=== PATIENT | female | born 1985 | race Caucasian/White ===

== ENCOUNTER → 2018-07-02 | Outpatient (CLI) | payer OTHER ==
--- NOTE | 2018-07-02 09:34 | US ---
EXAMINATION TYPE: US pelvic complete DATE OF EXAM: 07/02/2018 COMPARISON: NONE CLINICAL HISTORY: R10.30 Lower Abd Pain. Pelvic pain, right worse than left. Diagnosed with PCOS per patient. Irregular cycles TECHNIQUE: . Transabdominal sonographic images of the pelvis were acquired. Date of LMP: about 1 week ago EXAM MEASUREMENTS: Uterus: 7.0 x 3.2 x 4.4 cm Endometrial Stripe: 0.4 cm Right Ovary: 2.6 x 1.6 x 1.8 cm Left Ovary: 2.4 x 1.5 x 2.1 cm 1. Uterus: Anteverted wnl 2. Endometrium: wnl 3. Right Ovary: wnl 4. Left Ovary: wnl 5. Bilateral Adnexa: wnl 6. Posterior cul-de-sac: wnl IMPRESSION: Transabdominal pelvic ultrasound shows no suspicious abnormality. Ovaries noted normal in size without suspicious cystic change.
== END | disposition home or self-care (01) ==
LOC: RADUSWWP 08:55
PROVIDERS: ATTEND Internal Medicine
DX: R10.30 Lower abdominal pain, unspecified (principal)
CPT/HCPCS: 76856

== ENCOUNTER 2018-12-31 09:55 | Inpatient (IN) | payer OTHER ==
[2018-12-31] MEDS ORDERED: IPRATROPIUM-ALBUTEROL 3 ML NEB INHALATION STA (10:05)
[2018-12-31] MEDS ORDERED: PROMETHAZINE HCL 6.25 MG/5 ML CUP PO STA (10:06)
[2018-12-31] MEDS ORDERED: SODIUM CHLORIDE 0.9% 1,000 ML IV ONE (10:06)
[2018-12-31] MEDS ORDERED: methylPREDNISolone SOD SUCCI 125 MG/2 ML VIAL IV STA (10:06)
--- NOTE | 2018-12-31 10:09 | ED ---
URI HPI <Gilberto Barnett - Last Filed: 12/31/18 12:14> - General Source: RN notes reviewed, old records reviewed <Loraine Nguyen - Last Filed: 12/31/18 12:20> - General Stated Complaint: Cough Time Seen by Provider: 12/31/18 09:57 - History of Present Illness Initial Comments: 33-year-old female presents emergency department today for evaluation for cough and congestion. Patient states that she has had this cough for the past week. Patient states that her cough is persistent. She states it was taking a deep breath she has worsening response and coughing. She has had some episodes of vomiting. She has not diagnosis history of asthma. Patient is a [facility] for alcohol abuse, and was brought here via EMS. (Loraine Nguyen) - Related Data Home Medications Medication Instructions Recorded Confirmed Venlafaxine HCl [Effexor XR] 150 mg PO QAM 12/31/18 12/31/18 Allergies Allergy/AdvReac Type Severity Reaction Status Date / Time No Known Allergies Allergy Unverified 12/31/18 10:11 Review of Systems ROS Other: All systems not noted in ROS Statement are negative. <Gilberto Barnett - Last Filed: 12/31/18 12:14> ROS Other: All systems not noted in ROS Statement are negative. <Loraine Nguyen - Last Filed: 12/31/18 12:20> ROS Statement: Those systems with pertinent positive or pertinent negative responses have been documented in the HPI. General Exam <Gilberto Barnett - Last Filed: 12/31/18 12:14> General appearance: alert, in no apparent distress Head exam: Present: atraumatic, normocephalic, normal inspection Eye exam: Present: normal appearance, PERRL, EOMI. Absent: scleral icterus, conjunctival injection, periorbital swelling ENT exam: Present: normal exam, mucous membranes moist Neck exam: Present: normal inspection. Absent: tenderness, meningismus, lymphadenopathy Respiratory exam: Present: wheezes, decreased breath sounds. Absent: normal lung sounds bilaterally, respiratory distress, rales, rhonchi, stridor Cardiovascular Exam: Present: regular rate, normal rhythm, normal heart sounds. Absent: systolic murmur, diastolic murmur, rubs, gallop, clicks GI/Abdominal exam: Present: soft, normal bowel sounds. Absent: distended, tenderness, guarding, rebound, rigid Extremities exam: Present: normal inspection, full ROM, normal capillary refill. Absent: tenderness, pedal edema, joint swelling, calf tenderness Back exam: Present: normal inspection Neurological exam: Present: alert, oriented X3, CN II-XII intact Psychiatric exam: Present: normal affect, normal mood Skin exam: Present: warm, dry, intact, normal color. Absent: rash <Loraine Nguyen - Last Filed: 12/31/18 12:20> - General Exam Comments Initial Comments: 33-year-old female. Alert and oriented 3. Patient appears in no significant distress at this time. Pulse ox is 91% on room air. (Loraine Nguyen) Course <Gilberto Barnett - Last Filed: 12/31/18 12:14> <Loraine Nguyen - Last Filed: 12/31/18 12:20> Vital Signs 12/31/18 12/31/18 12/31/18 10:09 10:11 10:20 Temperature 98.6 F Pulse Rate 86 79 88 Respiratory 20 Rate Blood Pressure O2 Sat by Pulse 93 L Oximetry 12/31/18 12/31/18 10:29 11:14 Temperature Pulse Rate 81 88 Respiratory 18 18 Rate Blood Pressure 112/83 111/70 O2 Sat by Pulse 100 96 Oximetry - Reevaluation(s) Reevaluation #1: 12/31/18 12:14 PA supervision: I proceeded [id number] evaluation the patient. She presents with complaints of cough and shortness of breath going on for about one week. She is scheduled to get out of rehab for alcohol abuse tomorrow. X-rays demonstrate multilobed pneumonia evidence of right lower right middle lobe infiltrate possibly right upper lobe on clinical exam she has wheezes and rhonchi and the above lobes as well as left lower lobe. Also she is influenza type A positive. She'll be admitted for inpatient treatment I do agree with the assessment and plan. I did discuss the case with Dr. Cao (Gilberto Barnett) Medical Decision Making - Lab Data Result diagrams: 12/31/18 10:30 12/31/18 10:30 <Gilberto Barnett - Last Filed: 12/31/18 12:14> - Lab Data Result diagrams: 12/31/18 10:30 12/31/18 10:30 - Radiology Data Radiology results: report reviewed <Loraine Nguyen - Last Filed: 12/31/18 12:20> - Medical Decision Making 33 year old female presents to ED with CC of cough, shortness of breath. Patient has had symptoms for one week. Patient is a former RN. Patient has a history of alcohol abuse and is currently staying at [facility]. She was sent here via EMS. Checks emergency department today with a low pulse ox is 91% on room air. She's had diffuse wheezing and rhonchi noted bilaterally. She is given a double DuoNeb treatment. Patient is positive for influenza A. Chest x-ray is completed shows a multilobar pneumonia. I discussed case with Dr. Pacheco Recommended admission. With Patient having history of alcohol abuse and influenza she has multiple risk factors for resistant pathogens. It is started Patient on Rocephin and vancomycin this time. Further antibiotics per infectious disease. (Loraine Nguyen) - Lab Data Lab Results 12/31/18 12/31/18 12/31/18 Range/Units 10:10 10:30 10:30 WBC 2.9 L (3.8-10.6) k/uL RBC 3.73 L (3.80-5.40) m/uL Hgb 12.5 (11.4-16.0) gm/dL Hct 37.5 (34.0-46.0) % MCV 100.7 H (80.0-100.0) fL MCH 33.6 (25.0-35.0) pg MCHC 33.3 (31.0-37.0) g/dL RDW 14.3 (11.5-15.5) % Plt Count 222 (150-450) k/uL PT (9.0-12.0) sec INR (<1.2) APTT (22.0-30.0) sec Sodium 139 (137-145) mmol/L Potassium 4.7 (3.5-5.1) mmol/L Chloride 102 (98-107) mmol/L Carbon Dioxide 29 (22-30) mmol/L Anion Gap 8 mmol/L BUN 16 (7-17) mg/dL Creatinine 0.66 (0.52-1.04) mg/dL Est GFR (CKD-EPI)AfAm >90 (>60 ml/min/1.73 sqM) Est GFR (CKD-EPI)NonAf >90 (>60 ml/min/1.73 sqM) Glucose 92 (74-99) mg/dL Plasma Lactic Acid Luis M (0.7-2.0) mmol/L Calcium 8.7 (8.4-10.2) mg/dL Total Bilirubin 0.4 (0.2-1.3) mg/dL AST 126 H (14-36) U/L ALT 83 H (9-52) U/L Alkaline Phosphatase 75 (38-126) U/L Total Protein 6.7 (6.3-8.2) g/dL Albumin 3.8 (3.5-5.0) g/dL Influenza Type A RNA Detected H (Not Detectd) Influenza Type B (PCR) Not Detected (Not Detectd) 12/31/18 12/31/18 Range/Units 10:30 10:30 WBC (3.8-10.6) k/uL RBC (3.80-5.40) m/uL Hgb (11.4-16.0) gm/dL Hct (34.0-46.0) % MCV (80.0-100.0) fL MCH (25.0-35.0) pg MCHC (31.0-37.0) g/dL RDW (11.5-15.5) % Plt Count (150-450) k/uL PT 9.3 (9.0-12.0) sec INR 0.8 (<1.2) APTT 24.0 (22.0-30.0) sec Sodium (137-145) mmol/L Potassium (3.5-5.1) mmol/L Chloride (98-107) mmol/L Carbon Dioxide (22-30) mmol/L Anion Gap mmol/L BUN (7-17) mg/dL Creatinine (0.52-1.04) mg/dL Est GFR (CKD-EPI)AfAm (>60 ml/min/1.73 sqM) Est GFR (CKD-EPI)NonAf (>60 ml/min/1.73 sqM) Glucose (74-99) mg/dL Plasma Lactic Acid Luis M 1.4 (0.7-2.0) mmol/L Calcium (8.4-10.2) mg/dL Total Bilirubin (0.2-1.3) mg/dL AST (14-36) U/L ALT (9-52) U/L Alkaline Phosphatase (38-126) U/L Total Protein (6.3-8.2) g/dL Albumin (3.5-5.0) g/dL Influenza Type A RNA (Not Detectd) Influenza Type B (PCR) (Not Detectd) - Radiology Data Chest x-ray shows evidence of multilobar pneumonia. Follow-up to resolution. ( Loraine Nguyen) Disposition <Gilberto Barnett - Last Filed: 12/31/18 12:14> Is patient prescribed a controlled substance at d/c from ED?: No Time of Disposition: 12:20 <Loraine Nguyen - Last Filed: 12/31/18 12:20> Clinical Impression: Pneumonia and influenza, Leukopenia Disposition: ADMITTED IP TO THIS HOSP Condition: Stable Referrals: Karmen Gabriel MD [Primary Care Provider] - 1-2 days
--- NOTE | 2018-12-31 10:48 | XR ---
EXAMINATION TYPE: XR chest 2V DATE OF EXAM: 12/31/2018 COMPARISON: NONE HISTORY: Cough, fever and pain TECHNIQUE: Frontal and lateral views of the chest are obtained. FINDINGS: No evident pneumothorax or pleural effusion. There are cardiac leads. Heart size is normal . Bibasilar airspace disease is present, possible airspace disease right middle lobe, right upper lob e. IMPRESSION: Findings suggest multilobar pneumonia. Follow-up to resolution.
[2018-12-31] MEDS ORDERED: VANCOMYCIN IV PER PHARMACY 1 EACH MISC MISCELLANE PRN (11:12)
[2018-12-31] MEDS ORDERED: VANCOMYCIN 1,250 MG in SODIUM CHLORIDE 0.9% 250 ML IVPB STA (11:21)
[2018-12-31] MEDS ORDERED: SODIUM CHLORIDE 0.9% 50 ML BAG ONE (11:44)
[2018-12-31] MEDS ORDERED: cefTRIAXone 1 GM VIAL ONE (11:44)
[2018-12-31 11:45] LABS: INR 0.8 (<1.2); Prothrombin Time 9.3 sec (9.0-12.0)
[2018-12-31 11:46] LABS: ALT 83 U/L (9-52); AST 126 U/L (14-36); Albumin 3.8 g/dL (3.5-5.0); Alkaline Phosphatase 75 U/L (38-126); Anion Gap 8 mmol/L; Blood Urea Nitrogen 16 mg/dL (7-17); Calcium 8.7 mg/dL (8.4-10.2); Carbon Dioxide 29 mmol/L (22-30); Chloride 102 mmol/L (98-107); Glucose 92 mg/dL (74-99); Potassium 4.7 mmol/L (3.5-5.1); Sodium 139 mmol/L (137-145); Total Bilirubin 0.4 mg/dL (0.2-1.3); Total Protein 6.7 g/dL (6.3-8.2)
[2018-12-31 11:47] LABS: HCT 37.5 % (34.0-46.0); HGB 12.5 gm/dL (11.4-16.0); MCH 33.6 pg (25.0-35.0); MCHC 33.3 g/dL (31.0-37.0); MCV 100.7 fL (80.0-100.0); Macrocytosis Slight; Mean Platelet Volume 7.7; Platelet Count 222 k/uL (150-450); RBC 3.73 m/uL (3.80-5.40); RDW 14.3 % (11.5-15.5); WBC 2.9 k/uL (3.8-10.6)
[2018-12-31] MEDS: SODIUM CHLORIDE 0.9% 1,000 ML IV SCH ×2 (11:48→23:26)
[2018-12-31] MEDS: SODIUM CHLORIDE 0.9% 500 ML 500 ML IV SCH ×2 (11:48→11:49)
[2018-12-31] MEDS ORDERED: PNEUMONIA PROTOCOL UTILIZED 1 EACH MISC PO PRN (12:16)
[2018-12-31] MEDS ORDERED: IPRATROPIUM-ALBUTEROL 3 ML NEB INHALATION PRN (12:16)
[2018-12-31] MEDS ORDERED: OSELTAMIVIR 75 MG CAP PO STA (12:16)
[2018-12-31 12:22] LABS: Band Neutrophils % 9 %; Eosinophils # (M) 0.03 k/uL (0-0.7); Lymphocytes # (M) 0.84 k/uL (1.0-4.8); Monocytes # (M) 0.55 k/uL (0-1.0); Neutrophils % (M) 42 %; Nucleated Red Blood Cells 0 /100 WBC (0-0); Total Cells Counted 100
[2018-12-31 13:43] LABS: Appearance,Urine Clear (Clear); Bilirubin,Urine Negative (Negative); Blood,Urine Negative (Negative); Color,Urine Colorless; Glucose,Urine (UA) Negative (Negative); Ketones,Urine Trace (Negative); Leukocyte Esterase,Urine Negative (Negative); Nitrite,Urine Negative (Negative); Protein,Urine Negative (Negative); Specific Gravity,Urine 1.003 (1.001-1.035); Urobilinogen,Urine <2.0 mg/dL (<2.0)
[2018-12-31 14:55] VITALS: BMI 22.4
[2018-12-31] MEDS: guaiFENesin-DM 100-10MG/5ML 10 ML CUP PO PRN ×2 (17:15→22:40)
[2018-12-31] MEDS: KETOROLAC 30 MG/ML 1 ML VIAL IVP PRN (18:41)
[2018-12-31 20:06] LABS: Hepatitis A Antibody IgM Non-Reactive (Non-Reactive); Hepatitis B Core IgM Non-Reactive (Non-Reactive)
[2018-12-31] MEDS: VANCOMYCIN 1,250 MG in SODIUM CHLORIDE 0.9% 250 ML IVPB SCH (21:49)
[2018-12-31] MEDS: FAMOTIDINE 20 MG TAB PO SCH (22:03)
[2018-12-31] MEDS: OSELTAMIVIR 75 MG CAP PO SCH (22:39)
[2019-01-01] MEDS: KETOROLAC 30 MG/ML 1 ML VIAL IVP PRN ×2 (01:23→08:42)
[2019-01-01] MEDS: VANCOMYCIN 1,250 MG in SODIUM CHLORIDE 0.9% 250 ML IVPB SCH ×3 (05:48→22:35)
[2019-01-01 08:17] LABS: ALT 56 U/L (9-52); AST 56 U/L (14-36); Albumin 3.2 g/dL (3.5-5.0); Alkaline Phosphatase 65 U/L (38-126); Anion Gap 3 mmol/L; Blood Urea Nitrogen 11 mg/dL (7-17); Calcium 8.3 mg/dL (8.4-10.2); Carbon Dioxide 27 mmol/L (22-30); Chloride 110 mmol/L (98-107); Glucose 107 mg/dL (74-99); Potassium 4.1 mmol/L (3.5-5.1); Sodium 140 mmol/L (137-145); Total Bilirubin 0.2 mg/dL (0.2-1.3); Total Protein 5.8 g/dL (6.3-8.2)
[2019-01-01] MEDS: FAMOTIDINE 20 MG TAB PO SCH ×2 (08:22→22:35)
[2019-01-01] MEDS: AZITHROMYCIN 500 MG TAB PO SCH (08:23)
[2019-01-01] MEDS: OSELTAMIVIR 75 MG CAP PO SCH ×2 (08:23→22:34)
[2019-01-01] MEDS: VENLAFAXINE HCL ER 150 MG CAP PO SCH (08:23)
[2019-01-01 08:27] LABS: HCT 33.5 % (34.0-46.0); HGB 10.8 gm/dL (11.4-16.0); MCH 32.9 pg (25.0-35.0); MCHC 32.2 g/dL (31.0-37.0); MCV 102.2 fL (80.0-100.0); Macrocytosis Slight; Mean Platelet Volume 7.4; Platelet Count 262 k/uL (150-450); RBC 3.28 m/uL (3.80-5.40); RDW 14.2 % (11.5-15.5); WBC 5.1 k/uL (3.8-10.6)
[2019-01-01] MEDS: SODIUM CHLORIDE 0.9% 1,000 ML IV SCH ×2 (08:29→15:17)
--- NOTE | 2019-01-01 09:17 | XR ---
EXAMINATION TYPE: XR chest 2V DATE OF EXAM: 01/01/2019 COMPARISON: Chest x-ray from yesterday. HISTORY: Pneumonia progress study. TECHNIQUE: Frontal and lateral views of the chest are obtained. FINDINGS: There is persistent bibasilar opacities with more nodular lateral right upper lung opacity . No significant change from one day earlier. No pleural effusion or pneumothorax is evident. No medi astinal shift is identified. The cardiac silhouette size is stable and upper limits of normal. The osseous structures are intact. IMPRESSION: Persistent multilobar multifocal areas of bilateral acute infiltrate and/or atelectasis.
[2019-01-01] MEDS ORDERED: IBUPROFEN 600 MG TAB PO PRN (11:32)
[2019-01-01] MEDS ORDERED: ACETAMINOPHEN TAB 325 MG TAB PO PRN (11:33)
[2019-01-01] MEDS: guaiFENesin-DM 100-10MG/5ML 10 ML CUP PO PRN ×3 (11:48→22:35)
[2019-01-01] MEDS ORDERED: BUTALB/APAP/CAFF 50-325-40MG TAB PO PRN (13:02)
[2019-01-01] MEDS ORDERED: IBUPROFEN 400 MG TAB PO PRN (13:09)
--- NOTE | 2019-01-01 14:07 | P.HPIM ---
History of Present Illness H&P Date: 12/31/18 33-year-old female presents emergency department today for evaluation for cough and congestion. Patient states that she has had this cough for the past week. Patient states that her cough is persistent. She states it was taking a deep breath she has worsening response and coughing. She has had some episodes of vomiting. She has not diagnosis history of asthma. Patient is a [facility] facility for alcohol abuse.patient appears to have influenza infection chest x-ray showed diffuse infiltrate the possibility of secondary bacterialr pneumonia is low but cannot be ruled out and the patient is definitely high risk for staphylococcal pneumonia post-influenza because of which patient was started on vancomycin because of her continued symptoms for about a week I believe this is appropriate and patient will be continued on this medication actually is having flulike symptoms for about a week and with high-grade fever day before admission Review of Systems REVIEW OF SYSTEMS: CONSTITUTIONAL: as mentioned in HPI HEENT: No recent visual problems or hearing problems. Denied any sore throat. CARDIOVASCULAR: No chest pain, orthopnea, PND, no palpitations, no syncope. PULMONARY:no hemoptysis. GASTROINTESTINAL: No diarrhea, no nausea, no vomiting, no abdominal pain. NEUROLOGICAL: No headaches, no weakness, no numbness. HEMATOLOGICAL: Denies any bleeding or petechiae. GENITOURINARY: Denies any burning micturition, frequency, or urgency. MUSCULOSKELETAL/RHEUMATOLOGICAL: Denies any joint pain, swelling, or any muscle pain. ENDOCRINE: Denies any polyuria or polydipsia. The rest of the 14-point review of systems is negative. Past Medical History Additional Past Medical History / Comment(s): alcoholism History of Any Multi-Drug Resistant Organisms: None Reported Past Surgical History: No Surgical Hx Reported Past Anesthesia/Blood Transfusion Reactions: Unable to Obtain Additional Past Anesthesia/Blood Transfusion Reaction / Comment(s): Pt has never had anesthesia Smoking Status: Never smoker - Past Family History Father Family Medical History: No Reported History Additional Family Medical History / Comment(s): Father is healthy Mother Family Medical History: No Reported History Additional Family Medical History / Comment(s): Mother is healthy Medications and Allergies Home Medications Medication Instructions Recorded Confirmed Type Venlafaxine HCl [Effexor XR] 150 mg PO QAM 12/31/18 12/31/18 History Allergies Allergy/AdvReac Type Severity Reaction Status Date / Time No Known Allergies Allergy Unverified 12/31/18 10:11 Physical Exam Vitals: Vital Signs Temp Pulse Pulse Resp BP Pulse Ox 01/01/19 12:16 64 L 01/01/19 12:15 97.6 F 72 18 124/87 96 01/01/19 08:00 64 16 01/01/19 07:53 74 01/01/19 07:46 72 01/01/19 05:28 97.5 F L 64 16 100/63 95 12/31/18 23:28 90 20 12/31/18 21:19 94 L 12/31/18 20:51 98.2 F 90 20 134/71 12/31/18 19:49 70 16 12/31/18 14:07 97.8 F 78 16 125/81 93 L Intake and Output 12/31/18 01/01/19 01/01/19 22:59 06:59 14:59 Intake Total 490 Balance 490 Intake: Intake, IV Titration 250 Amount Vancomycin 1,250 mg In 250 Sodium Chloride 0.9% 250 ml @ 125 mls/hr IVPB Q8H [facility] Rx#:[id number] Oral 240 Other: Voiding Method Toilet Toilet Toilet # Voids 2 2 3 PHYSICAL EXAMINATION: GENERAL: The patient is alert and oriented x3, not in any acute distress. Well developed, well nourished. HEENT: Pupils are round and equally reacting to light. EOMI. No scleral icterus. No conjunctival pallor. Normocephalic, atraumatic. No pharyngeal erythema. No thyromegaly. CARDIOVASCULAR: S1 and S2 present. No murmurs, rubs, or gallops. PULMONARY: diffuse bilateral crackles and rhonchus breath sounds no wheezing was appreciated ABDOMEN: Soft, nontender, nondistended, normoactive bowel sounds. No palpable organomegaly. MUSCULOSKELETAL: No joint swelling or deformity. EXTREMITIES: No cyanosis, clubbing, or pedal edema. NEUROLOGICAL: Gross neurological examination did not reveal any focal deficits. SKIN: No rashes. Results CBC & Chem 7: 01/01/19 06:50 01/01/19 06:50 Labs: Abnormal Lab Results - Last 24 Hours (Table) 01/01/19 01/01/19 Range/Units 06:50 06:50 RBC 3.28 L (3.80-5.40) m/uL Hgb 10.8 L (11.4-16.0) gm/dL Hct 33.5 L (34.0-46.0) % MCV 102.2 H (80.0-100.0) fL Chloride 110 H (98-107) mmol/L Creatinine 0.51 L (0.52-1.04) mg/dL Glucose 107 H (74-99) mg/dL Calcium 8.3 L (8.4-10.2) mg/dL AST 56 H (14-36) U/L ALT 56 H (9-52) U/L Total Protein 5.8 L (6.3-8.2) g/dL Albumin 3.2 L (3.5-5.0) g/dL Microbiology - Last 24 Hours (Table) 12/31/18 10:30 Blood Culture - Preliminary Blood No Growth after 24 hours 12/31/18 13:15 Urine Culture - Preliminary Urine,Voided Thrombosis Risk Factor Assmnt - Choose All That Apply Any of the Below Risk Factors Present?: No Other Risk Factors: No Other congenital or acquired thrombophilia - If yes, enter type in comment: No Thrombosis Risk Factor Assessment Level: Very Low Risk Assessment and Plan Plan: -sepsis: Secondary to influenza pneumonia R seconded back till pneumonia cannot be ruled out continue vancomycin and azithromycin for now. Continue with Tamiflu IV fluids -Influenza A sepsis -Elevated liver enzymes and monitor them we'll obtain a hepatitis panel. -alcohol abuse for which patient is admitted to drug rehabilitation program elevated liver enzymes can be from alcoholism expected to improve with disc herniation of alcohol Patient will need GI prophylaxis
--- NOTE | 2019-01-01 14:09 | P.PN ---
Subjective 33-year-old female presents emergency department today for evaluation for cough and congestion. Patient states that she has had this cough for the past week. Patient states that her cough is persistent. She states it was taking a deep breath she has worsening response and coughing. She has had some episodes of vomiting. She has not diagnosis history of asthma. Patient is a [facility] facility for alcohol abuse.patient appears to have influenza infection chest x-ray showed diffuse infiltrate the possibility of secondary bacterialr pneumonia is low but cannot be ruled out and the patient is definitely high risk for staphylococcal pneumonia post-influenza because of which patient was started on vancomycin because of her continued symptoms for about a week I believe this is appropriate and patient will be continued on this medication actually is having flulike symptoms for about a week and with high-grade fever day before admission 01/01/2019 Patient is feeling bit better today we'll continue with IVantibiotics today, still has significant generalized weakness and body aches possibility of discharge tomorrow Constitutional:as mentioned in HPI Cardio vascular: denied any chest pain, palpitations Gastrointestinal denied any nausea vomiting Pulmonary: Denied any shortness of breath cough Neurologic denied any new focal deficits All inpatient medications were reviewed and appropriate changes in these medications as dictated in the interval history and assessment and plan. Objective - Vital Signs Vital signs: Vital Signs Temp 97.6 F 01/01/19 12:15 Pulse 72 01/01/19 12:15 Resp 18 01/01/19 12:15 BP 124/87 01/01/19 12:15 Pulse Ox 64 L 01/01/19 12:16 Intake & Output 12/31/18 01/01/19 01/01/19 18:59 06:59 18:59 Intake Total 200 490 Balance 200 490 Weight 61.235 kg Intake: Intake, IV Titration 250 Amount Vancomycin 1,250 mg In 250 Sodium Chloride 0.9% 250 ml @ 125 mls/hr IVPB Q8H [facility] Rx#:[id number] Oral 200 240 Other: Voiding Method Toilet Toilet Toilet # Voids 2 2 3 - Exam PHYSICAL EXAMINATION: GENERAL: The patient is alert and oriented x3, not in any acute distress. Well developed, well nourished. HEENT: Pupils are round and equally reacting to light. EOMI. No scleral icterus. No conjunctival pallor. Normocephalic, atraumatic. No pharyngeal erythema. No thyromegaly. CARDIOVASCULAR: S1 and S2 present. No murmurs, rubs, or gallops. PULMONARY: diffuse bilateral crackles and rhonchus breath sounds no wheezing was appreciated ABDOMEN: Soft, nontender, nondistended, normoactive bowel sounds. No palpable organomegaly. MUSCULOSKELETAL: No joint swelling or deformity. EXTREMITIES: No cyanosis, clubbing, or pedal edema. NEUROLOGICAL: Gross neurological examination did not reveal any focal deficits. SKIN: No rashes. - Labs CBC & Chem 7: 01/01/19 06:50 01/01/19 06:50 Labs: Abnormal Lab Results - Last 24 Hours (Table) 01/01/19 01/01/19 Range/Units 06:50 06:50 RBC 3.28 L (3.80-5.40) m/uL Hgb 10.8 L (11.4-16.0) gm/dL Hct 33.5 L (34.0-46.0) % MCV 102.2 H (80.0-100.0) fL Chloride 110 H (98-107) mmol/L Creatinine 0.51 L (0.52-1.04) mg/dL Glucose 107 H (74-99) mg/dL Calcium 8.3 L (8.4-10.2) mg/dL AST 56 H (14-36) U/L ALT 56 H (9-52) U/L Total Protein 5.8 L (6.3-8.2) g/dL Albumin 3.2 L (3.5-5.0) g/dL Microbiology - Last 24 Hours (Table) 12/31/18 10:30 Blood Culture - Preliminary Blood No Growth after 24 hours 12/31/18 13:15 Urine Culture - Preliminary Urine,Voided Assessment and Plan Plan: -sepsis: Secondary to influenza pneumonia R seconded back till pneumonia cannot be ruled out continue vancomycin and azithromycin for now. Continue with Tamiflu IV fluids -Influenza A sepsis -Elevated liver enzymes , improving liver enzymes secondary to acute alcoholic hepatitis , hepatitis panel is negative -alcohol abuse for which patient is admitted to drug rehabilitation program elevated liver enzymes can be from alcoholism expected to improve with disc herniation of alcohol Patient will need GI prophylaxis
[2019-01-02] MEDS: SODIUM CHLORIDE 0.9% 1,000 ML IV SCH ×2 (04:55→08:20)
[2019-01-02] MEDS ORDERED: VANCOMYCIN TROUGH DUE 1 EACH MISC MISCELLANE ONE (05:00)
[2019-01-02 05:29] VITALS: PULSE 67; RESP 16
[2019-01-02] MEDS: VANCOMYCIN 1,250 MG in SODIUM CHLORIDE 0.9% 250 ML IVPB SCH (06:15)
[2019-01-02] MEDS: guaiFENesin-DM 100-10MG/5ML 10 ML CUP PO PRN (06:40)
[2019-01-02] MEDS: AZITHROMYCIN 500 MG TAB PO SCH (08:18)
[2019-01-02] MEDS: OSELTAMIVIR 75 MG CAP PO SCH (08:18)
[2019-01-02] MEDS: VENLAFAXINE HCL ER 150 MG CAP PO SCH (08:18)
[2019-01-02] MEDS: FAMOTIDINE 20 MG TAB PO SCH (08:18)
[2019-01-02 12:10] VITALS: BP 115/78; TEMP 98.1
--- NOTE | 2019-01-02 14:10 | P.DS ---
Providers Date of admission: 12/31/18 12:14 Attending physician: Naeem Cao MD Primary care physician: [facility] Course: 33-year-old female presents emergency department today for evaluation for cough and congestion. Patient states that she has had this cough for the past week. Patient states that her cough is persistent. She states it was taking a deep breath she has worsening response and coughing. She has had some episodes of vomiting. She has not diagnosis history of asthma. Patient is a [facility] facility for alcohol abuse.patient appears to have influenza infection chest x-ray showed diffuse infiltrate the possibility of secondary bacterialr pneumonia is low but cannot be ruled out and the patient is definitely high risk for staphylococcal pneumonia post-influenza because of which patient was started on vancomycin because of her continued symptoms for about a week I believe this is appropriate and patient will be continued on this medication actually is having flulike symptoms for about a week and with high-grade fever day before admission 01/01/2019 Patient is feeling bit better today we'll continue with IVantibiotics today, still has significant generalized weakness and body aches possibility of discharge tomorrow 01/02/2019 Patient is be clinically doing well will be discharged on doxepin for 3 more days PHYSICAL EXAMINATION: GENERAL: The patient is alert and oriented x3, not in any acute distress. Well developed, well nourished. HEENT: Pupils are round and equally reacting to light. EOMI. No scleral icterus. No conjunctival pallor. Normocephalic, atraumatic. No pharyngeal erythema. No thyromegaly. CARDIOVASCULAR: S1 and S2 present. No murmurs, rubs, or gallops. Pulmonary: Mild bibasilar crackles ABDOMEN: Soft, nontender, nondistended, normoactive bowel sounds. No palpable organomegaly. MUSCULOSKELETAL: No joint swelling or deformity. EXTREMITIES: No cyanosis, clubbing, or pedal edema. NEUROLOGICAL: Gross neurological examination did not reveal any focal deficits. SKIN: No rashes. Assessment and Plan Plan: -sepsis: Secondary to influenza pneumonia , secondary pneumonia cannot be ruled out continue vancomycin and azithromycin for now. Patient will be discharged on doxycycline and Tamiflu so far all the cultures are negative -Influenza A sepsis -Elevated liver enzymes , improving liver enzymes secondary to acute alcoholic hepatitis , hepatitis panel is negative -alcohol abuse for which patient is admitted to drug rehabilitation program elevated liver enzymes can be from alcoholism expected to improve with disc herniation of alcohol Patient will need GI prophylaxis Patient Condition at Discharge: Stable Plan - Discharge Summary Discharge Rx Participant: No New Discharge Prescriptions: New Doxycycline [Vibramycin] 100 mg PO BID 3 Days #6 capsule Oseltamivir [Tamiflu] 75 mg PO Q12HR #10 cap Butalb/APAP/Caff 50-325-40Mg [Fioricet 50-325-40] 1 each PO Q4HR PRN #20 tab PRN Reason: Headache Continue Venlafaxine HCl [Effexor XR] 150 mg PO QAM Discharge Medication List Venlafaxine HCl [Effexor XR] 150 mg PO QAM 12/31/18 [History] Butalb/APAP/Caff 50-325-40Mg [Fioricet 50-325-40] 1 each PO Q4HR PRN #20 tab 08/12 [Rx] Doxycycline [Vibramycin] 100 mg PO BID 3 Days #6 capsule 01/02/19 [Rx] Oseltamivir [Tamiflu] 75 mg PO Q12HR #10 cap 01/02/19 [Rx] Follow up Appointment(s)/Referral(s): Karmen Gabriel MD [Primary Care Provider] - 3 Days (Patient to call Dr. Gabriel's office to schedule follow up appointment. The office is closed at time of discharge. ) Patient Instructions/Handouts: Doxycycline (By mouth), Oseltamivir (By mouth), Influenza (DC), Pneumonia (DC) Discharge Disposition: HOME SELF-CARE
[2019-01-02] MEDS ORDERED: VANCOMYCIN 1,250 MG in SODIUM CHLORIDE 0.9% 250 ML IVPB SCH (18:00)
== END 2019-01-02 14:30 | disposition home or self-care (01) | DRG 871 ==
LOC: EC 09:55 → 3NMEDONC 12:14
PROVIDERS: ADMIT Internal Medicine; ATTEND Internal Medicine
DX: A41.89 Other specified sepsis (principal); J10.08 Influenza due to other identified influenza virus with other specified pneumonia; J15.4 Pneumonia due to other streptococci; D72.819 Decreased white blood cell count, unspecified; F10.20 Alcohol dependence, uncomplicated; R94.5 Abnormal results of liver function studies
CPT/HCPCS: 36415; 71046; 80053; 80074; 80202; 81003; 83605; 85025; 85027; 85610; 85730; 87040; 87086; 87502; 93005; 94640; 96361; 96365; 96367; 96375; 99285

== ENCOUNTER 2023-09-24 06:00 | Inpatient (IN) | payer OTHER ==
[2023-09-24] MEDS ORDERED: CARBOPROST TROMETHAMINE 250 MCG/ML 1 ML AMP IM PRN (06:40)
[2023-09-24] MEDS ORDERED: LIDOCAINE 0.5% (PF) 5 MG/ML (50 ML SDV) SQ PRN (06:40)
[2023-09-24] MEDS ORDERED: TERBUTALINE 1 MG/ML VIAL SQ PRN (06:40)
[2023-09-24] MEDS ORDERED: OXYTOCIN 10 UNIT/ML 1 ML VIAL IM PRN (06:40)
[2023-09-24] MEDS ORDERED: TRANEXAMIC 1,000 MG/100ML-NACL 1,000 MG in EMPTY BAG 1 BAG IV PRN (06:40)
[2023-09-24] MEDS ORDERED: METHYLERGONOVINE 0.2 MG/ML 1 ML AMP IM PRN (06:40)
[2023-09-24] MEDS ORDERED: miSOPROStoL 200 MCG TAB PO PRN (06:40)
[2023-09-24] MEDS ORDERED: OXYTOCIN 30 UNITS/500 ML NS 30 UNIT in SALINE 1 500ML.BAG IV SCH ×2 (06:45→13:30)
[2023-09-24] MEDS: LACTATED RINGERS 1,000 ML IV SCH ×2 (06:51→09:36)
[2023-09-24 06:59] VITALS: RESP 16
[2023-09-24 07:12] LABS: Basophils % (A) 0 %; Eosinophils # (A) 0.2 k/uL (0-0.7); Eosinophils % (A) 2 %; HCT 35.1 % (34.0-46.0); HGB 12.2 gm/dL (11.4-16.0); Lymphocytes # (A) 1.8 k/uL (1.0-4.8); Lymphocytes % (A) 19 %; MCH 31.8 pg (25.0-35.0); MCHC 34.6 g/dL (31.0-37.0); Mean Platelet Volume 8.1; Monocytes # (A) 0.6 k/uL (0-1.0); Monocytes % (A) 6 %; Neutrophils # (A) 6.7 k/uL (1.3-7.7); Neutrophils % (A) 71 %; Platelet Count 262 k/uL (150-450); RBC 3.82 m/uL (3.80-5.40); RDW 12.3 % (11.5-15.5); WBC 9.5 k/uL (3.8-10.6)
--- NOTE | 2023-09-24 08:02 | P.HPOB ---
History of Present Illness H&P Date: 09/24/23 Chief Complaint: Induction of labor Ms. Pike is a 38 year old at 39 weeks and 0 days with EDC of 10/01/2023 (by LMP consistent with 8 week US) who presents for induction of labor. The has been complicated by intrauterine growth restriction, with abdominal circumference less than the 10%ile. However, the IUGR resolved with most recent ultrasound at 36 weeks showing overall EFW at 23% and AC at 10.4%. Throughout the third trimester surveillance has been reassuring. The patient is also advanced maternal age. Obstetric history: 2 SABs work-up: blood type O negative (s/p rhogam 07/15/2023), antibody negative, rubella immune, VDRL non-reactive, HBsAg negative, HCV Ab negative, gonorrhea negative, chlamydia negative, 1 hour GTT within normal limits, GBS negative. Past medical history: anxiety and depression (not on medications) Past surgical history: wisdom teeth Past Medical History Past Medical History: No Reported History Additional Past Medical History / Comment(s): alcoholism History of Any Multi-Drug Resistant Organisms: None Reported Past Surgical History: No Surgical Hx Reported Past Anesthesia/Blood Transfusion Reactions: Unable to Obtain Additional Past Anesthesia/Blood Transfusion Reaction / Comment(s): Pt has never had anesthesia Past Psychological History: Depression Smoking Status: Former smoker Past Alcohol Use History: None Reported Past Drug Use History: None Reported - Past Family History Father Family Medical History: No Reported History Additional Family Medical History / Comment(s): Father is healthy Mother Family Medical History: No Reported History Additional Family Medical History / Comment(s): Mother is healthy Medications and Allergies Home Medications Medication Instructions Recorded Confirmed Type Aspirin 1 tab PO DAILY 09/24/23 09/24/23 History Vit No.179/Iron/Folic 1 tab PO DAILY 09/24/23 09/24/23 History [ Tablet] Allergies Allergy/AdvReac Type Severity Reaction Status Date / Time No Known Allergies Allergy Unverified 09/24/23 06:31 Exam Vital Signs Temp Pulse Resp BP Pulse Ox 09/24/23 06:32 97.5 F L 95 16 125/78 100 Intake and Output 09/23/23 09/24/23 09/24/23 22:59 06:59 14:59 Other: Weight 81.647 kg Focused physical exam is performed. This is a healthy-appearing in no apparent distress. Breathing is non-labored. Abdomen is gravid and non-tender. Cervical exam is 2 cm, 30% effacement, -3 station. AROM is undertaken with clear fluid noted. Extremeties non-tender and non-edematous. heart tones are Category I and tocometer is graphing contractions every 2-4 minutes. Results Result Diagrams: 09/24/23 06:30 Assessment and Plan Assessment: 38 year old at 39 weeks and 0 days presenting for induction of labor Plan: NPO, mIVF, pitocin titrated per hospital protocol, continuous EFM, continuous tocometer, epidural prn. Time with Patient: Less than 30
[2023-09-24] MEDS ORDERED: SODIUM CHLORIDE 0.9% 250 ML BAG ONE (10:08)
[2023-09-24] MEDS ORDERED: ROPIVACAINE 5 MG/ML 30 ML VIAL ONE (10:08)
[2023-09-24] MEDS ORDERED: fentaNYL (PF) 50 MCG/ML 5 ML AMP ONE (10:08)
[2023-09-24] MEDS ORDERED: ZOLPIDEM 5 MG TAB PO PRN (13:23)
[2023-09-24] MEDS ORDERED: BENZOCAINE/MENTHOL SPRAY 1 GM/SPRAY AEROSOL TOPICAL PRN (13:23)
[2023-09-24] MEDS ORDERED: LANOLIN CREAM 5 GM TUBE TOPICAL PRN (13:23)
[2023-09-24] MEDS ORDERED: diphenhydrAMINE 50 MG CAP PO PRN (13:23)
[2023-09-24] MEDS ORDERED: diphenhydrAMINE 50 MG/ML 1 ML VIAL IVP PRN ×2 (13:23)
[2023-09-24] MEDS ORDERED: ACETAMINOPHEN TAB 325 MG TAB PO PRN (13:23)
[2023-09-24] MEDS ORDERED: SIMETHICONE 80 MG CHEWABLE PO PRN (13:23)
[2023-09-24] MEDS ORDERED: HYDROCORTISONE 2.5% RECTAL CREAM 30 GM TUBE RECTAL PRN (13:23)
[2023-09-24] MEDS ORDERED: Rhogam IMMUNE GLOBULIN 1,500 UNIT/1 ML IM ONE (13:23)
[2023-09-24] MEDS ORDERED: diphenhydrAMINE 25 MG CAP PO PRN (13:23)
--- NOTE | 2023-09-24 13:23 | P.PROBDLV ---
Vaginal Delivery Note - . Vaginal Delivery Note: DATE OF SERVICE: 09/24/2023 PROCEDURE: Normal Vaginal Delivery ATTENDING: Dr. Verito Zepeda MD ESTIMATED BLOOD LOSS: 100 mL FINDINGS: VMI, Apgars 8/8. Weight 6#5oz (2885 grams) PROCEDURE: Ms. Pike is a 38 year old at 39 weeks and 0 days presenting to labor and delivery for induction of labor. The has been complicated by IUGR that resolved at 36 weeks. For further details, please review the admitting H&P. Oxytocin was titrated per hospital protocol. AROM was undertaken at 725 for clear fluid. The patient received an epidural per her request. The patient was completely dilated at 1219. During pushing, a category II heart tracing was noted but the patient was pushing effectively so pushing efforts were continued as delivery was imminent. A viable male was delivered at 1253. The infant was placed on the maternal abdomen and bulb suctioned. The infant was noted to be spontaneously crying. Cord was clamped and cut after a 30-second delay. The infant was handed off to the pediatric team. Placenta was delivered whole with gentle cord traction at 1254. Oxytocin was started to facilitate uterine tone. Uterine fundus was found to be firm and below the umbilicus upon fundal massage. Thorough examination of the cervix, vagina, periurethral area, and perineum revealed a lateral first degree laceration repaired with 2-0 Vicryl in a running fashion. The patient is stable and allowed to begin the bonding process. Patient stable .
[2023-09-24] MEDS: IBUPROFEN 600 MG TAB PO PRN ×2 (15:53→21:51)
[2023-09-24] MEDS: SENNOSIDES-DOCUSATE SODIUM 1 EACH TAB PO SCH (19:58)
[2023-09-25] MEDS: IBUPROFEN 600 MG TAB PO PRN ×2 (04:21→11:36)
[2023-09-25 07:51] LABS: Basophils % (A) 0 %; Eosinophils # (A) 0.2 k/uL (0-0.7); Eosinophils % (A) 2 %; HCT 32.3 % (34.0-46.0); HGB 11.1 gm/dL (11.4-16.0); Lymphocytes # (A) 1.5 k/uL (1.0-4.8); Lymphocytes % (A) 13 %; MCH 32.3 pg (25.0-35.0); MCHC 34.4 g/dL (31.0-37.0); MCV 93.9 fL (80.0-100.0); Monocytes # (A) 0.8 k/uL (0-1.0); Monocytes % (A) 6 %; Neutrophils # (A) 9.4 k/uL (1.3-7.7); Neutrophils % (A) 78 %; Platelet Count 223 k/uL (150-450); RBC 3.44 m/uL (3.80-5.40); RDW 12.4 % (11.5-15.5); WBC 12.1 k/uL (3.8-10.6)
[2023-09-25] MEDS: SENNOSIDES-DOCUSATE SODIUM 1 EACH TAB PO SCH (07:57)
--- NOTE | 2023-09-25 08:52 | P.DS ---
Providers Date of admission: 09/24/23 06:00 Expected date of discharge: 09/25/23 Attending physician: Verito Zepeda MD Primary care physician: Stated None Hospital Course: Ms. Pike is a 38 year old now PPD#1 s/p normal vaginal delivery. The patient is doing well this morning and had no acute events overnight. She has no complaints this morning. She reports minimal lochia, passing flatus, voiding without difficulty, ambulating, and eating/drinking without nausea or vomiting. Infant doing well at bedside, is going well. She denies chest pain, shortness of breathing, fevers, or chills overnight. She denies pain or swelling in the legs. restrictions are reviewed with the patient including pelvic rest for 6 weeks. The patient is encouraged to call the office if she experiences any heavy bleeding, foul-smelling discharge, breast complaints, or any if she has any other concerns. She will follow up in the office with in 6 weeks for exam. She requests prescription for Motrin. All questions are answered. Assessment: 38 year old now PPD#1 s/p normal vaginal delivery Patient Condition at Discharge: Good Plan - Discharge Summary New Discharge Prescriptions: No Action Aspirin 1 tab PO DAILY Vit No.179/Iron/Folic [ Tablet] 1 tab PO DAILY Discharge Medication List Aspirin 1 tab PO DAILY 09/24/23 [History] Vit No.179/Iron/Folic [ Tablet] 1 tab PO DAILY 09/24/23 [History]
[2023-09-25 09:12] VITALS: BP 129/75; PULSE 80; TEMP 98
== END 2023-09-25 13:54 | disposition home or self-care (01) | DRG 560 ==
LOC: 4FBP 06:00
PROVIDERS: ADMIT Obstetrics & Gynecology; ATTEND Obstetrics & Gynecology
PROC: 10E0XZZ Delivery of Products of Conception, External Approach (ICD-10-PCS; principal; 2023-09-24)
PROC: 3E033VJ Introduction of Other Hormone into Peripheral Vein, Percutaneous Approach (ICD-10-PCS; 2023-09-24)
PROC: 10907ZC Drainage of Amniotic Fluid, Therapeutic from Products of Conception, Via Natural or Artificial Opening (ICD-10-PCS; 2023-09-24)
PROC: 0HQ9XZZ Repair Perineum Skin, External Approach (ICD-10-PCS; 2023-09-24)
PROC: 4A1HXCZ Monitoring of Products of Conception, Cardiac Rate, External Approach (ICD-10-PCS; 2023-09-24)
DX: O36.5930 Maternal care for other known or suspected poor fetal growth, third trimester, not applicable or unspecified (principal); F32.A Depression, unspecified; O70.0 First degree perineal laceration during delivery; O76 Abnormality in fetal heart rate and rhythm complicating labor and delivery; O26.893 Other specified pregnancy related conditions, third trimester; O99.344 Other mental disorders complicating childbirth; Z37.0 Single live birth; Z3A.39 39 weeks gestation of pregnancy; Z67.41 Type O blood, Rh negative; Z79.82 Long term (current) use of aspirin; Z87.891 Personal history of nicotine dependence
CPT/HCPCS: 85025; 86850; 86870; 86880; 86900; 86901